=== PATIENT | female | born 1955 | race Caucasian/White ===

== ENCOUNTER 2018-09-26 09:45 | Day surgery (SDC) | payer OTHER ==
[~2018-09-26] VITALS: Ht 170.2 cm; Wt 64.5 kg
[2018-09-26 10:55] VITALS: BP 120/74; PULSE 67; RESP 16
[2018-09-26 10:59] VITALS: Ht 170.2 cm; Wt 64.5 kg
[2018-09-26] MEDS ORDERED: CEFAZOLIN 1 GM/50 ML (PMX) 50 ML IVPB ONE ×3 (13:15→13:17)
[2018-09-26] MEDS ORDERED: LIDOCAINE 1% (MDV) 20 ML INJ ONE (13:17)
[2018-09-26] MEDS ORDERED: HEPARIN 1000 UNITS/ML 10 ML INJ ONE (13:17)
[2018-09-26] MEDS ORDERED: POLYMYXIN/BACITRACIN 1L IRRIG ONE (13:18)
[2018-09-26] MEDS ORDERED: SOD CHLORIDE 0.9% 500 ML ONE (13:18)
[2018-09-26] MEDS ORDERED: MIDAZOLAM 1 MG/ML 2 ML INJ ONE (13:24)
[2018-09-26] MEDS ORDERED: FENTAnyl 50 MCG/ML VIAL ONE (13:25)
[2018-09-26 14:05] VITALS: BP 130/70; PULSE 60; RESP 16
--- NOTE | 2018-09-26 15:10 | RADRPT ---
PROCEDURE: Left internal jugular port placement with ultrasound and fluoroscopic guidance CLINICAL INDICATION: Cancer TECHNIQUE: Versed and Fentanyl were administered by the radiology nurse who monitored the patient. Ancef 2 grams intravenously was also administered preoperatively. Fluoroscopy time: 0.2 min Number of images/cine sequences: 1 Air Kerma: 2.84 mGy Sedation time: 30 min Informed consent was obtained following careful explanations of the risks and benefits of the procedu re. Preliminary ultrasound was obtained and demonstrates a widely patent left internal jugular vein. Maximal sterile barrier technique was utilized with a cap, mask, sterile gown, sterile gloves, and la rge sterile sheet. Hand hygiene was also obtained prior to the procedure with 2% chlorhexidine for cu taneous antisepsis. 1% lidocaine was utilized for local anesthesia. The left internal jugular vein was punctured with a micropuncture needle under direct ultrasound guid ance and a guide wire was advanced into the central veins as confirmed by fluoroscopy. The needle was exchanged for an introducer. A recorded ultrasound image was not obtained. A site in the patients chest wall was selected and 1% lidocaine with epinephrine was administered to the skin. Utilizing a #15 blade, an incision was made and a pocket was created utilizing blunt dis section with a Lauren clamp. The pocket was irrigated with normal saline. The catheter of the port was then tunneled retrograde from the pocket towards the puncture site in th e patients neck. A guidewire was advanced through the introducer in the patients neck and the i ntroducer was exchanged over the wire for a #7 Singaporean sheath, which was placed in the left internal j ugular vein. The catheter was advanced through the peel-away sheath and the sheath was removed. The t ip of the catheter was placed in the mid right atrium. The proximal end of the catheter was then cut to the appropriate length and connected to the port. The port was placed inside the pocket. It flushe d and aspirated well. A photo spot image confirms proper positioning of the catheter tip in the upper right atrium. The incision in the patients chest was closed with interrupted subcutaneous 2-0 Vicryl sutures. De rmabond was applied to both incisions and Steri-Strips were also applied. The port was accessed and flushed with heparinized saline. A sterile dressing was applied. The patient tolerated the procedure well COMPARISON: none FINDINGS: As above. IMPRESSION: 1. Uncomplicated placement of an #6 Singaporean single lumen Power Injectable Port in the left internal ju gular vein with its tip overlying the right atrium. 2. The catheter is ready for use. RPTAT: QQ Madeline Medrano Physician Date Time Electronically viewed and signed by Madeline Medrano Physician on 09/26/2018 15:10 CA/
== END 2018-09-26 15:25 | disposition home or self-care (01) ==
LOC: SDS 09:45 → RAD 09:45
PROVIDERS: ATTEND Internal Medicine Hematology & Oncology
DX: C50.911 Malignant neoplasm of unspecified site of right female breast (principal)
CPT/HCPCS: C1788; J0690; J1644; J2250; J3010; J7040

== ENCOUNTER 2018-10-09 11:13 | Emergency (ER) | payer OTHER ==
[~2018-10-09] VITALS: Ht 162.6 cm; Wt 62.7 kg
[2018-10-09 11:17] VITALS: Ht 162.6 cm; Wt 62.7 kg
[2018-10-09] MEDS ORDERED: ONDANSETRON 4 MG INJ IV STA (11:46)
[2018-10-09] MEDS ORDERED: SOD CHLORIDE 0.9% 1,000 ML IV STA (11:46)
[2018-10-09] MEDS ORDERED: morphine 4 MG/ML VIAL IV STA (11:46)
[2018-10-09] MEDS ORDERED: ONDA8TAB9 PO (12:13)
[2018-10-09] MEDS ORDERED: SOD CHLORIDE 0.9% 100 ML ONE (12:55)
[2018-10-09] MEDS ORDERED: IOHEXOL 300MG/ML 150 ML BTL ONE (12:56)
--- NOTE | 2018-10-09 13:09 | ERD ---
ER Documentation Chief Complaint Chief Complaint CHEMO 10/01 LAST NIGHT FEVER,DIARRHEA HPI This is a 63-year-old female who has breast cancer and underwent her first chemotherapy treatment on Saturday and developed some loose stool yesterday and today. She states she had a temperature of 100.1 last night. She had some initial abdominal pain yesterday but is subsided today. She has no cough no vomiting no blood in her stool no dysuria or hematuria no headache neck pain photophobia ROS All systems reviewed and are negative except as per history of present illness. Medications Home Meds Reported Medications Ondansetron Hcl* (Zofran*) 8 Mg Tablet, 8 MG PO NEEDED PRN for NAUSEA AND OR VOMITING, TAB 10/09/18 Allergies Allergies: Coded Allergies: No Known Allergy (Unverified , 10/09/18) PMhx/Soc History of Surgery: No Anesthesia Reaction: No Hx Neurological Disorder: No Hx Respiratory Disorders: No Hx Cardiac Disorders: No Hx Psychiatric Problems: No Hx Miscellaneous Medical Probl: No Hx Alcohol Use: No Hx Substance Use: No Hx Tobacco Use: No Smoking Status: Never smoker FmHx Family History: No coronary disease Physical Exam Vitals Vital Signs Date Temp Pulse Resp B/P (MAP) Pulse Ox O2 O2 Flow FiO2 Time Delivery Rate 10/09/18 99.6 109 18 103/63 99 11:17 (76) Physical Exam Const: Well-developed, well-nourished Head: Atraumatic, normocephalic Eyes: Normal Conjunctiva, PERRLA, EOMI, normal sclera, no nystagmus ENT: Normal External Ears, Nose and Mouth, moist mucus membranes. Neck: Full range of motion. No meningismus, no lymphadenopathy. Resp: Clear to auscultation bilaterally, no wheezing, rhonchi, rales Cardio: Regular rate and rhythm, no murmurs, S1 S2 present Abd: Soft, mild pain to the left mid and lower abdomen, non distended. Normal bowel sounds, no guarding or rebound, no pulsitile abdominal masses or bruits Skin: No petechiae or rashes, no ecchymosis , no maculopapular rash Back: No midline or flank tenderness Ext: No cyanosis, or edema, FROM x 4, normal inspection, neurovascu larly intact x 4 Neur: Awake and alert, STR 5/5 x 4, sensation intact x 4, no focal findings, cerebellum intact Psych: Normal Mood and Affect Result Diagram: 10/09/18 1200 10/09/18 1200 Results 24 hrs Laboratory Tests Test 10/09/18 12:00 10/09/18 12:13 White Blood Count 3.3 10^3/ul Red Blood Count 3.83 10^6/ul Hemoglobin 11.9 g/dl Hematocrit 35.0 % Mean Corpuscular Volume 91.4 fl Mean Corpuscular Hemoglobin 31.1 pg Mean Corpuscular Hemoglobin Concent 34.0 g/dl Red Cell Distribution Width 15.3 % Platelet Count 179 10^3/UL Mean Platelet Volume 12.5 fl Immature Granulocytes % 2.800 % Neutrophils % % Lymphocytes % % Monocytes % % Eosinophils % % Basophils % % Nucleated Red Blood Cells % 0.6 /100WBC Immature Granulocytes # 0.090 10^3/ul Neutrophils # 10^3/ul Lymphocytes # 10^3/ul Monocytes # 10^3/ul Eosinophils # 10^3/ul Basophils # 10^3/ul Nucleated Red Blood Cells # 10^3/ul Sodium Level 133 mmol/L Potassium Level 4.3 mmol/L Chloride Level 97 mmol/L Carbon Dioxide Level 27 mmol/L Anion Gap 9 Blood Urea Nitrogen 21 mg/dl Creatinine 0.94 mg/dl Est Glomerular Filtrat Rate mL/min > 60 mL/min Glucose Level 125 mg/dl Calcium Level 8.7 mg/dl Total Bilirubin 0.8 mg/dl Direct Bilirubin 0.00 mg/dl Indirect Bilirubin 0.8 mg/dl Aspartate Amino Transf (AST/SGOT) 77 IU/L Alanine Aminotransferase (ALT/SGPT) 159 IU/L Alkaline Phosphatase 189 IU/L Total Protein 6.8 g/dl Albumin 3.5 g/dl Globulin 3.30 g/dl Albumin/Globulin Ratio 1.06 Lipase 18 U/L Bedside Urine pH (LAB) 5.0 Bedside Urine Protein (LAB) 2+ Bedside Urine Glucose (UA) Negative Bedside Urine Ketones (LAB) Trace Bedside Urine Blood 1+ Bedside Urine Nitrite (LAB) Positive Bedside Urine Leukocyte Esterase (L Negative Current Medications Medications Dose Sig/Terry Start Time Status Last (Trade) Ordered Route PRN Stop Time Admin Dose Reason Admin Sodium 1,000 ml @ Q1H STAT 10/09/18 DC 10/09/18 Chloride 1,000 mls/hr IV 11:46 12:08 10/09/18 12:45 Morphine 4 mg ONCE STAT 10/09/18 DC Sulfate IV 11:46 (morphine) 10/09/18 11:49 Ondansetron 4 mg ONCE STAT 10/09/18 DC 10/09/18 HCl (Zofran IV 11:46 12:08 Inj) 10/09/18 11:49 IV Flush 10 ml STK-MED 10/09/18 DC (NS 10 ml) ONCE .ROUTE 12:55 10/09/18 12:56 Sodium 100 ml @ ud STK-MED 10/09/18 DC Chloride ONCE .ROUTE 12:55 10/09/18 12:56 Iohexol 150 ml STK-MED 10/09/18 DC (Omnipaque ONCE .ROUTE 12:56 300mg/ ml) 10/09/18 12:57 Procedures/[place] [id number] Radiology Main Line: [phone] DIAGNOSTIC IMAGING REPORT Patient: RONA EDWARDS : 1955 Age: 63 Sex: F MR #: [id number] DOS: 10/09/18 1146 Ordering MD: SUSAN MULLEN DO Location: E/R Room/Bed: PROCEDURE: CT Abdomen and Pelvis With Intravenous Contrast CLINICAL INDICATION: Abdominal Pain TECHNIQUE: Axial computed tomography images of the abdomen and pelvis with intravenous contrast. Sagittal and coronal reformatted images were created and reviewed. CTDIvol (mGy) = 7.1; total DLP (mGy-cm) = 422.7. This CT exam was performed using one or more of the following dose reduction techniques: automated exposure control, adjustment of the mA and/or kV according to patient size, and/or use of iterative reconstruction technique. DICOM images are available. CONTRAST: 100 mL of Omnipaque-300 was administered intravenously. COMPARISON: None FINDINGS: LUNG BASES: Normal. No mass. No consolidation. ABDOMEN: LIVER: Focal hepatic steatosis near the falciform ligament. GALLBLADDER AND BILE DUCTS: Mild extrahepatic biliary dilatation with common bile duct measuring up to 1 cm in diameter. No evidence of choledocholithiasis. PANCREAS: Normal. No mass. No ductal dilation. SPLEEN: Normal. No splenomegaly. ADRENALS: Normal. No mass. KIDNEYS AND URETERS: Normal. No solid mass. No hydronephrosis. STOMACH AND BOWEL: Colonic diverticulosis with focal inflammation at the mid left colon suggestive of diverticulitis. No evidence of extraluminal gas or fluid collection. Nondistended fluid-filled small and large bowel loops throughout the raising the possibility of enteritis. PELVIS: APPENDIX: No findings to suggest acute appendicitis. BLADDER: Normal. No mass. REPRODUCTIVE: Unremarkable as visualized. ABDOMEN and PELVIS: INTRAPERITONEAL SPACE: See above. BONES/JOINTS: Degenerative disc changes at the L4-5 level. No acute fracture. No dislocation. SOFT TISSUES: Small fat-containing umbilical hernia. Mild fat-containing left inguinal hernia VASCULATURE: Normal. No abdominal aortic aneurysm. LYMPH NODES: Normal. No enlarged lymph nodes. IMPRESSION: 1. Colonic diverticulosis with focal inflammation at the mid left colon suggestive of diverticulitis. No evidence of extraluminal gas or fluid collection. 2. Nondistended fluid-filled small and large bowel loops throughout the raising the possibility of enteritis. Recommend clinical correlation. 3. Mild extrahepatic biliary dilatation with common bile duct measuring up to 1 cm in diameter. No evidence of choledocholithiasis. Question physiologic ectasia. Recommend clinical and laboratory correlation. Abdominal ultrasound or MRCP could be obtained if further evaluation is clinically indicated. RPTAT:GG .Petr Mcleod MD, Date Time Electronically viewed and signed by .Petr Mcleod MD, on 10/09/2018 13:25 .L/ CC: SUSAN MULLEN DO [phone] Patient is a small area of diverticulitis on her CT abdomen. She has no pain in the right upper quadrant consistent with gallbladder etiology of her symptoms. Is likely due to chronic issue. I will give her a dose of Invanz 1 g IV and discharged home with Cipro Flagyl an d pain medication. She is given strong warning signs to return. Departure Diagnosis: Primary Impression: Diverticulitis Condition: Stable SUSAN MULLEN DO October 09, 2018 13:09
[2018-10-09] MEDS ORDERED: METR500T PO (13:45)
[2018-10-09] MEDS ORDERED: CIPR500T4 PO (13:45)
[2018-10-09] MEDS ORDERED: HYDR-3980 PO (13:45)
[2018-10-09 13:56] VITALS: BP 98/85; PULSE 93; RESP 20
[2018-10-09] MEDS ORDERED: ERTAPENEM SODIUM 1 GM in SOD CHLORIDE 0.9% 100 ML IVPB ONE (14:00)
== END 2018-10-09 14:38 | disposition home or self-care (01) ==
LOC: E/R 11:13
DX: K57.32 Diverticulitis of large intestine without perforation or abscess without bleeding (principal); C50.919 Malignant neoplasm of unspecified site of unspecified female breast
CPT/HCPCS: 36415; 74177; 80053; 81003; 83690; 85025; 96374; 96375; 99285; J1335; J2405; J7030; Q9967